=== PATIENT | male | born 1975 | race Caucasian/White ===

== ENCOUNTER 2022-01-10 22:31 | Emergency (ER) | payer SELFPAY ==
[2022-01-10 22:32] VITALS: BP 108/68; PULSE 102; RESP 18; TEMP 36.9; O2SAT 98; BMI 21.5
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
[2022-01-11 00:14] VITALS: BP 108/64; PULSE 77; RESP 12; TEMP 36.7; O2SAT 97
== END 2022-01-11 00:19 | disposition home or self-care (01) ==
PROVIDERS: Emergency Provider Emergency Medicine
DX: S06.0X0A Concussion without loss of consciousness, initial encounter (principal); S01.81XA Laceration without foreign body of other part of head, initial encounter; S01.01XA Laceration without foreign body of scalp, initial encounter; X99.8XXA Assault by other sharp object, initial encounter; Y92.89 Other specified places as the place of occurrence of the external cause; Z23 Encounter for immunization; F12.10 Cannabis abuse, uncomplicated; F10.10 Alcohol abuse, uncomplicated
CPT/HCPCS: 12013; 12002; 70450; 90714; 99282

== ENCOUNTER 2023-09-28 18:58 | Emergency (ER) | payer OTHER, SELFPAY ==
[2023-09-28 19:00] VITALS: BP 108/58; PULSE 86; RESP 23; O2SAT 99
[2023-09-28 19:01] VITALS: BMI 22.0
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
--- NOTE | 2023-09-28 19:11 | PC.NURSE ---
on phone with [facility] for transfer to their facility
--- NOTE | 2023-09-28 19:13 | PC.NURSE ---
transfer center to call back
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
--- NOTE | 2023-09-28 19:16 | CT_ITS ---
PROCEDURE INFORMATION: Exam: CTA Head With Contrast, Arteriography Exam date and time: 09/28/2023 7:35 PM Age: 47 years old Clinical indication: Injury or trauma; Additional info: Trauma, critical injury suspected TECHNIQUE: Imaging protocol: Computed tomographic angiography of the head with contrast. Exam focused on the arteries. 3D rendering (Not supervised by radiologist): MIP and/or 3D reconstructed images were created by the technologist. Radiation optimization: All CT scans at this facility use at least one of these dose optimization techniques: automated exposure control; mA and/or kV adjustment per patient size (includes targeted exams where dose is matched to clinical indication); or iterative reconstruction. Contrast material: ISOUVE 370; Contrast volume: 100 ml; Contrast route: INTRAVENOUS (IV); REPORTING DATA: Count of CT and Cardiac NM exams in prior 12 months: This patient has received 0 known CTs and 0 known cardiac nuclear medicine studies in the 12 months prior to the current study. COMPARISON: CT HEAD/BRAIN WO CON 09/28/2023 7:23 PM FINDINGS: ANTERIOR CIRCULATION: Right internal carotid artery: Intracranial segment is patent with no significant stenosis. No aneurysm. Right middle cerebral artery: No occlusion or significant stenosis. No aneurysm. Right anterior cerebral artery: No occlusion or significant stenosis. No aneurysm. Left internal carotid artery: Intracranial segment is patent with no significant stenosis. No aneurysm. Left middle cerebral artery: No occlusion or significant stenosis. No aneurysm. Left anterior cerebral artery: No occlusion or significant stenosis. No aneurysm. POSTERIOR CIRCULATION: Right vertebral artery: No occlusion or significant stenosis. No aneurysm. Left vertebral artery: No occlusion or significant stenosis. No aneurysm. Basilar artery: No occlusion or significant stenosis. No aneurysm. Right posterior cerebral artery: No occlusion or significant stenosis. No aneurysm. Left posterior cerebral artery: No occlusion or significant stenosis. No aneurysm. Brain: No definite mass, mass effect, or midline shift. Cerebral ventricles: No ventriculomegaly. Bones/joints: Unremarkable. No acute fracture. Soft tissues: Unremarkable. IMPRESSION: No evidence for a embolism, occlusion, dissection, stenosis, or aneurysm.
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
--- NOTE | 2023-09-28 19:19 | PC.NURSE ---
patient to radiology
[2023-09-28 19:20] VITALS: BP 130/69; PULSE 89; O2SAT 99
[2023-09-28 19:23] LABS: Chloride 104 mmol/L (98-107)
[2023-09-28 19:24] LABS: Basophils # 0.1 K/mm3 (0-0.2); Basophils % 0.7 % (0.1-2.0); Eosinophils # 0.1 K/mm3 (0.0-0.4); Eosinophils % 0.8 % (0.1-12.0); Hematocrit 42.5 % (42.0-52.0); Hemoglobin 14.3 g/dL (14.1-18.0); Lymphocytes % 19.8 % (10-50); Mean Corpuscular HGB Conc 33.8 g/dL (31.8-35.4); Mean Corpuscular Hemoglobin 32.9 pg (27.0-31.2); Mean Corpuscular Volume 97.5 fl (80-94); Mean Platelet Volume 8.2 fl (7.4-10.4); Monocytes % 6.4 % (1.7-9.3); Neutrophils # 10.8 K/mm3 (1.8-7.8); Neutrophils % 72.3 % (37.0-80.0); Platelet Count 300 K/mm3 (142-424); Potassium 3.6 mmoL/L (3.5-5.1); Red Blood Count 4.36 M/mm3 (4.60-6.20); Red Cell Distribution Width 12.5 % (11.5-17.5); Sodium 138 mmol/L (136-145)
[2023-09-28 19:26] LABS: Alanine Aminotransferase 25 U/L (12-78); Alkaline Phosphatase 67 U/L (38-126); Anion Gap 9.6 mEq/L (5-15); Aspartate Amino Transferase 36 U/L (17-59); Bilirubin,Total 0.5 mg/dl (0.2-1.3); Blood Urea Nitrogen 13 mg/dl (9-20); Carbon Dioxide 28 mmol/L (22.0-30.0); Creatinine Clearance Estimated 85 mL/min (50-200); Estimated Glomerular Filt Rate 80 ml/min (>60); GFR (African American) 97 ML/MIN (>60)
[2023-09-28 19:27] LABS: Albumin Level 4.6 g/dl (3.5-5.0); Albumin/Globulin Ratio 1.6 (1.1-1.8); Calcium 8.8 mg/dl (8.4-10.2); Globulin 2.9 g/dL (1.3-3.2); Glucose 132 mg/dl (74-100); Total Protein,Serum 7.5 g/dl (6.3-8.2)
--- NOTE | 2023-09-28 19:27 | PC.NURSE ---
[facility] [facility] accepted flight and are in route.
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
--- NOTE | 2023-09-28 19:29 | PC.NURSE ---
Mayelin Horvath, calling [facility] for transfer
[2023-09-28 19:30] VITALS: BP 111/72; PULSE 72; RESP 22; O2SAT 99
[2023-09-28 19:30] LABS: MANUAL DIFFERENTIAL MANUAL DIFFERENTIAL (MANUAL DIFF)
--- NOTE | 2023-09-28 19:31 | PC.NURSE ---
Dr. Adams speaking with trauma attendee and ED attendee at this time.
--- NOTE | 2023-09-28 19:33 | PC.NURSE ---
imaging being power shared to [facility]
--- NOTE | 2023-09-28 19:35 | PC.NURSE ---
[facility] asccepted patient to ER, Dr Bolanos accepting.
--- NOTE | 2023-09-28 19:38 | PC.NURSE ---
1857- Pt's family pulled up to ER and multiple staff members met them at their car with c-collar and ER stretcher. 1858- Paged trauma alert paged overhead to ER trauma room 2. and several staff mebers at bedside with bedside u/s. 1904- MD completed FAST exam with u/s and states we'll keep him here and scan him . CANDI Nguyen RN asked, Is ok to cancel the trauma alert?. MD responded yes . 1907- pt condition changed and reports now numbness in 2 limbs. Step-off deformity mid-spine noted on log-roll. Attempted to call [facility] that was in the middle of obtaining a transfer from another unit. s/w [employer] regarding transfer and have a 55 minute respond time, reaching out to another crew for a closer respond time. aware.
[2023-09-28 19:39] LABS: Lipase 76 U/L (23-300)
--- NOTE | 2023-09-28 19:51 | PC.NURSE ---
Dr. Adams s/w [facility]
[2023-09-28 19:52] LABS: INR 1.06 (0.9-1.1); Lymphocytes % 26 % (10-50); Monocytes % 2 % (2-9); Neutrophils % 71 % (42-76); Platelet Estimate Normal; Prothrombin Time 11.4 seconds (10.1-12.5); Stomatocytes 1+; Total Cells Counted 100
[2023-09-28 19:59] LABS: Troponin I < 0.01 ng/ml (0.00-0.034)
--- NOTE | 2023-09-28 20:00 | PC.NURSE ---
pt transferred to flight team stretcher.
[2023-09-28 20:05] VITALS: BP 137/78; PULSE 107; RESP 22; TEMP 36.5; O2SAT 99
== END 2023-09-28 20:10 | disposition other institution (70) ==
PROVIDERS: Emergency Provider Student in an Organized Health Care Education/Training Program
DX: S32.038A Other fracture of third lumbar vertebra, initial encounter for closed fracture (principal); S32.020A Wedge compression fracture of second lumbar vertebra, initial encounter for closed fracture; S32.018A Other fracture of first lumbar vertebra, initial encounter for closed fracture; R10.0 Acute abdomen; R06.02 Shortness of breath; R20.2 Paresthesia of skin; M54.9 Dorsalgia, unspecified; F17.210 Nicotine dependence, cigarettes, uncomplicated; W55.29XA Other contact with cow, initial encounter
CPT/HCPCS: 70450; 70496; 70498; 71045; 71275; 72070; 72125; 72128; 72131; 72170; 72192; 74174; 80053; 83690; 84484; 85007; 85025; 85610; 85730; 96361; 96374; 96375; 99291; J2405; Q9967